=== PATIENT | male | born 1960 | race Caucasian/White ===

== ENCOUNTER 2017-11-13 14:42 | Inpatient (IN) | payer OTHER ==
[~2017-11-13] VITALS: Ht 177.8 cm; Wt 111.1 kg
[~2017-11-13 14:42] MED LIST: OMEPRAZOLE20 MG PO
[2017-11-17] VITALS (7 sets, daily range): BP systolic 107–140; BP diastolic 70–79
[2017-11-18 00:12] VITALS: BP 103/66
[2017-11-18 04:36] VITALS: BP 110/65
[2017-11-18 05:14] LABS: IMMATURE GRANULOCYTES 0.3 % (0.0-1.0); MEAN CELL VOLUME 91.1 fL CALC (80.0-100.0); MEAN CORPUSCULAR HGB 30.5 pG CALC (26.0-32.0); MEAN CORPUSCULAR HGB CONC 33.5 g/L CALC (32.0-36.0); NEUT# 7.42 thou/uL (1.82-7.42); RED BLOOD COUNT 4.39 mill/uL (4.70-6.10); RED CELL DISTRI WIDTH 13.2 % (11.5-15.5)
[2017-11-18 05:17] LABS: HEMOGLOBIN 13.4 g/dl (14.0-18.0)
[2017-11-18 05:32] LABS: ANION GAP 17 (6-22 (CALC)); BUN 13 mg/dL (9-20); CARBON DIOXIDE 25 mmol/l (22-30); CHLORIDE 101 mmol/l (95-108); MAGNESIUM 1.6 mg/dL (1.6-2.3); POTASSIUM 4.4 mmol/l (3.5-5.1); SODIUM 139 mmol/l (137-146)
[2017-11-18 05:37] LABS: BUN/CREATININE RATIO 14 (12-20 (CALC)); CREATININE 0.9 mg/dL (0.7-1.3); GFR > 60 ML/MIN (>=60 (CALC)); GFR FOR AFR.AMER. > 60 ML/MIN (>=60 (CALC))
[2017-11-18 08:09] VITALS: BP 108/74
[2017-11-18 15:24] VITALS: BP 126/71
[2017-11-18 19:10] VITALS: BP 138/80
[2017-11-19 00:59] VITALS: BP 126/74
[2017-11-19 05:21] VITALS: BP 144/78
[2017-11-19 05:37] LABS: HEMATOCRIT 35.9 % (39.0-50.0); HEMOGLOBIN 12.2 g/dl (14.0-18.0); MEAN CORPUSCULAR HGB 30.6 pG CALC (26.0-32.0); RED BLOOD COUNT 3.99 mill/uL (4.70-6.10); RED CELL DISTRI WIDTH 13.3 % (11.5-15.5)
[2017-11-19 05:55] LABS: ANION GAP 17 (6-22 (CALC)); BUN 10 mg/dL (9-20); BUN/CREATININE RATIO 11 (12-20 (CALC)); CARBON DIOXIDE 25 mmol/l (22-30); CHLORIDE 96 mmol/l (95-108); CREATININE 0.9 mg/dL (0.7-1.3); GFR > 60 ML/MIN (>=60 (CALC)); GFR FOR AFR.AMER. > 60 ML/MIN (>=60 (CALC)); MAGNESIUM 1.6 mg/dL (1.6-2.3); POTASSIUM 4.1 mmol/l (3.5-5.1); SODIUM 134 mmol/l (137-146)
[2017-11-19 08:44] VITALS: BP 131/77
[2017-11-19 15:49] VITALS: BP 136/74
[2017-11-19 19:00] VITALS: BP 151/91
[2017-11-19 20:20] LABS: URINE BILIRUBIN - DIPSTICK NEGATIVE (NEGATIVE); URINE BLOOD DIPSTICK NEGATIVE (NEGATIVE); URINE COLOR YELLOW; URINE GLUCOSE - DIPSTICK NEGATIVE (NEGATIVE); URINE KETONE NEGATIVE (NEGATIVE); URINE LEUK ESTERASE NEGATIVE (NEGATIVE); URINE NITRITE - DIPSTICK NEGATIVE (Negative); URINE PH 6.5 (4.5-8.0); URINE PROTEIN - DIPSTICK NEGATIVE (NEG-TRACE); URINE UROBILINOGEN - DIPSTICK 0.2 E.U./dL (0.2)
[2017-11-19 20:29] LABS: URINE CLARITY CLEAR
[2017-11-20 00:30] VITALS: BP 103/67
[2017-11-20 04:47] VITALS: BP 128/82
[2017-11-20 05:44] LABS: ANION GAP 18 (6-22 (CALC)); BUN 11 mg/dL (9-20); BUN/CREATININE RATIO 11 (12-20 (CALC)); CARBON DIOXIDE 26 mmol/l (22-30); CHLORIDE 96 mmol/l (95-108); GFR > 60 ML/MIN (>=60 (CALC)); GFR FOR AFR.AMER. > 60 ML/MIN (>=60 (CALC)); MAGNESIUM 1.8 mg/dL (1.6-2.3); POTASSIUM 3.8 mmol/l (3.5-5.1); SODIUM 135 mmol/l (137-146)
[2017-11-20 05:45] LABS: HEMATOCRIT 32.7 % (39.0-50.0); IMMATURE GRANULOCYTES 1.3 % (0.0-1.0); MEAN CELL VOLUME 89.6 fL CALC (80.0-100.0); MEAN CORPUSCULAR HGB 30.1 pG CALC (26.0-32.0); MEAN CORPUSCULAR HGB CONC 33.6 g/L CALC (32.0-36.0); NEUT# 7.48 thou/uL (1.82-7.42); RED BLOOD COUNT 3.65 mill/uL (4.70-6.10); RED CELL DISTRI WIDTH 13.3 % (11.5-15.5)
[2017-11-20 08:19] VITALS: BP 115/74
[2017-11-20] MEDS ORDERED: SURFAK240 MG/CAP PO (11:12)
[2017-11-20] MEDS ORDERED: GLYCOLAX3350 N1 PO (11:12)
[2017-11-20] MEDS ORDERED: ASPIRIN EC325 MG PO (11:12)
[2017-11-20] MEDS ORDERED: PERCOCET 10/31 COMBO PO (11:12)
[2017-11-20] MEDS ORDERED: DOXYCYCL HYC100 MG PO (11:12)
== END 2017-11-20 13:05 | disposition home or self-care (01) | DRG 470 ==
LOC: MS2 11-17 09:32
PROVIDERS: Nurse Practitioner Family; ADMIT Orthopaedic Surgery; ATTEND Internal Medicine
PROC: 0SRC0J9 Replacement of Right Knee Joint with Synthetic Substitute, Cemented, Open Approach (ICD-10-PCS; principal; 2017-11-17)
DX: M17.11 Unilateral primary osteoarthritis, right knee (principal); K21.9 Gastro-esophageal reflux disease without esophagitis; K59.00 Constipation, unspecified; R50.82 Postprocedural fever; Z87.891 Personal history of nicotine dependence
CPT/HCPCS: J3370

== ENCOUNTER 2024-04-28 12:03 | Emergency (ER) | payer SELFPAY ==
[~2024-04-28] VITALS: Ht 177.8 cm; Wt 87.5 kg
[~2024-04-28 12:03] MED LIST changes: +ASPIRIN EC325 MG PO; +DOXYCYCL HYC100 MG PO; +GLYCOLAX3350 N1 PO; +PERCOCET 10/31 COMBO PO; +SURFAK240 MG/CAP PO
[2024-04-28 12:12] VITALS: BP 112/75
[2024-04-28 12:15] VITALS: BP 99/71
[2024-04-28] MEDS ORDERED: TOPROL XL25 M1 PO (12:21)
[2024-04-28] MEDS ORDERED: ASPIRINCHW 81MG PO (12:23)
[2024-04-28] MEDS ORDERED: CRESTOR20 MG PO (12:23)
[2024-04-28] MEDS ORDERED: ZOFRAN4 MG/TAB PO (12:24)
[2024-04-28] MEDS ORDERED: COMPAZINE10 MG PO (12:25)
[2024-04-28] MEDS ORDERED: B COMPLEX FORMU1 TAB PO (12:26)
[2024-04-28] MEDS ORDERED: COQ1030 MG PO (12:27)
[2024-04-28] MEDS ORDERED: VITAMIN D PO (12:28)
[2024-04-28 12:29] VITALS: BP 88/66
[2024-04-28 12:30] VITALS: BP 91/64
[2024-04-28 13:00] VITALS: BP 90/68
[2024-04-28 13:15] VITALS: BP 90/68
== END 2024-04-28 13:13 | disposition left against medical advice (07) | DRG 394 ==
LOC: ED 12:03
DX: K94.13 Enterostomy malfunction (principal); C15.9 Malignant neoplasm of esophagus, unspecified; F17.200 Nicotine dependence, unspecified, uncomplicated; Y83.3 Surgical operation with formation of external stoma as the cause of abnormal reaction of the patient, or of later complication, without mention of misadventure at the time of the procedure